=== PATIENT | male | born 1965 | race Caucasian/White ===

== ENCOUNTER 2024-12-11 07:13 | Inpatient (IN) ==
--- NOTE | 2024-12-11 07:41 | Emergency Department Note ---
ED Provider Note History of Present Illness Chief Complaint: Facial Injury/Pain Stated Complaint: JAW SWOLLEN AND INFECTED Time Seen by Provider: 12/11/24 07:23 Source: patient Mode of arrival: ambulatory Limitations: no limitations This patient is a 59-year-old male who presents to the emergency department for evaluation of an infection of his jaw. Patient states that he was seen here 2 days ago due to pain and swelling of the left jaw. At that time he had a scan and was sent home on clindamycin and oxycodone. He states that his swelling and pain have been worsening. He states the swelling is extending down into the left side of his neck. He states that yesterday, he began having trouble swallowing and today he feels he is having some slight trouble breathing. He currently denies fevers. Patient is diabetic and takes Eliquis due to history of DVT. Home Medications Medication Instructions Recorded Confirmed Type acetaminophen 500 mg tablet 500 mg PO Q6H PRN Pain 08/13/23 12/11/24 History cholecalciferol (vitamin D3) 25 25 mcg PO DAILY ##0 08/13/23 12/11/24 History mcg (1,000 unit) tablet (Vitamin D3) empagliflozin 25 mg tablet 25 mg PO QAM 08/13/23 12/11/24 History (Jardiance) famotidine 20 mg tablet 20 mg PO BID 08/13/23 12/11/24 History clindamycin HCl 300 mg capsule 300 mg PO TID 10 days #30 caps 12/09/24 12/11/24 Rx (Cleocin HCl) oxycodone 5 mg tablet 5 mg PO Q4H PRN pain #15 tabs 12/09/24 12/11/24 Rx apixaban 5 mg tablet (Eliquis) 5 mg PO BID 12/11/24 12/11/24 History atorvastatin 80 mg tablet 40 mg PO QAM 12/11/24 12/11/24 History folic acid 1 mg tablet 1 mg PO DAILY 12/11/24 12/11/24 History Allergies Allergy/AdvReac Type Severity Reaction Status Date / Time aspirin Allergy Anaphylaxis Verified 12/11/24 10:02 bee venom protein (honey bee) Allergy Anaphylaxis Verified 12/11/24 10:02 shellfish derived Allergy Hives Verified 12/11/24 10:02 Sulfa (Sulfonamide Allergy Hives Verified 12/11/24 10:02 Antibiotics) seafood Allergy Hives Uncoded 12/11/24 10:02 Past Med/Surg History Problem List (Updated 12/11/24 @ 16:38 by Meghan Rincon PA-C) Facial cellulitis (Acute) Carious teeth Anticoagulant long-term use Acute periodontal abscess (Acute) Dental infection (Acute) History of DVT (deep vein thrombosis) History of colon polyps Medical History History of cardiac murmur as a child Diabetes mellitus, type 2 Degenerative joint disease knees GERD (gastroesophageal reflux disease) Hyperlipidemia Surgical History Hx of colonoscopy Hx of sinus surgery Hx of tonsillectomy Social History Smoking Status: Former smoker Tobacco Type: Smokeless Tobacco (Dip or Chew) Second Hand Exposure: No; Do You Dip or Chew Tobacco: Yes; Hx Alcohol Use: Yes Alcohol type: beer Hx Substance Use: No Preferred Language: Croatian Communication Ability: Effective Neurology Technician Required: No Beliefs That Will Affect Care: None Current Living Situation: Family current occupational status: disabled Other Information That Helps Us Care for You: No Feels Safe at Home: Yes Safety Concerns: Feels Safe At This Time Assistive Devices: Glasses Physical Exam Vital Signs Vital Signs - 24 hr 12/11/24 07:18 12/11/24 08:56 Temperature 36.5 C Temperature Source Skin Pulse Rate 109 H Respiratory Rate 15 Respiratory Effort / Characteristics Non-Labored Spontaneous Respiratory Depth Normal Blood Pressure 165/86 H Blood Pressure Mean 112 Blood Pressure Position Sitting Pulse Oximetry 92 88 L Oxygen Delivery Method Room Air Room Air Sepsis Recent Fever Within 48 Hours No Sepsis New/Unexplained Change in Mental Status N/A Sepsis Action Taken by Nursing No Action Required Oxygen Flow Rate - Titration 2 Pulse Oximetry Post Tiitration 95 VITALS: Vitals are noted on the nurse's note and reviewed by myself. GENERAL: This is a 59-year-old male, in no acute distress, well-developed well- nourished. EARS: External auditory canals clear, tympanic membranes pearly funez without erythema or effusion bilaterally. EYES: Pupils equal round and reactive to light and accommodation. MOUTH: Very poor dentition. NECK: There is erythema, induration and tenderness to palpation along the left mandible extending down the neck and into the submental space. Mild trismus. HEART: Regular rate and rhythm without murmurs gallops or rubs. LUNGS: Clear to auscultation bilaterally without wheezes, rales or rhonchi. NEURO: Patient was alert and oriented to person place and time. Course Administered Medications Ampicillin Sodium/Sulbactam Sodium (Unasyn) 3,000 mg in 100 mls @ 200 mls/hr IV Q6H MARY Stop: 12/21/24 13:59 Last Infusion: 12/11/24 15:10 Dose: Infused Documented By: Admin: 12/11/24 14:39 Dose: 200 mls/hr Documented By: MARY Oxycodone/Acetaminophen (Oxycodone/Acetaminophen 5mg/325mg Tab) 2 tab PO Q4H PRN PRN Reason: Severe Pain (Scale 7, 8, 9,10) Stop: 12/25/24 12:12 Last Admin: 12/11/24 13:57 Dose: 2 tab Documented By: MARY Discontinued Medications Ampicillin Sodium/Sulbactam Sodium (Unasyn) 3,000 mg in 100 mls @ 200 mls/hr IV NOW STA Stop: 12/11/24 08:00 Last Infusion: 12/11/24 13:39 Dose: Infused Documented By: Admin: 12/11/24 08:04 Dose: 200 mls/hr Documented By: DANA Ioversol (Optiray 320 100ml) 94 ml IV ONCE ONE Stop: 12/11/24 08:03 Last Admin: 12/11/24 08:03 Dose: 94 ml Documented By: JERRY Morphine Sulfate (Morphine Sulfate 10 Mg/Ml Carp/Vial) 6 mg IV NOW STA Stop: 12/11/24 08:05 Last Admin: 12/11/24 08:19 Dose: 6 mg Documented By: DANA Ondansetron HCl (Ondansetron Inj 2 Mg/Ml 2 Ml Vial) 4 mg IV NOW STA Stop: 12/11/24 08:21 Last Admin: 12/11/24 08:23 Dose: 4 mg Documented By: DANA Oxycodone/Acetaminophen (Oxycodone/Acetaminophen 5mg/325mg Tab) 2 tab PO NOW STA Stop: 12/11/24 10:57 Last Admin: 12/11/24 11:01 Dose: 2 tab Documented By: JOSE Medical Decision Making Differential Diagnosis Differential diagnosis includes dental caries, periapical abscess, facial cellulitis, Khoi's angina, pharyngitis, referred pain, among others. Laboratory Data Attestation: I reviewed the patient's lab results. 12/11/24 07:47 12/11/24 08:39 Lab Results 12/11/24 12/11/24 Range/Units 07:47 08:39 WBC 10.72 (4.8-10.8) K/ul RBC 4.82 (4.70-6.10) M/uL Hgb 14.9 (14.0-18.0) g/dl Hct 43.9 (42.0-52.0) % MCV 91.1 (80.0-100.0) fL MCH 30.9 (25.0-34.0) pg MCHC 33.9 (32.0-36.0) g/dL RDW Std Deviation 44.1 (36.4-46.3) fL RDW Coeff of Kervin 13.2 (11.5-14.5) % Plt Count 279 (130-400) K/uL MPV 8.7 L (9.4-12.4) fL Immature Gran % (Auto) 0.4 % Neut % (Auto) 78.5 % Lymph % (Auto) 10.4 % Borden % (Auto) 9.6 % Eos % (Auto) 0.9 % Baso % (Auto) 0.2 % Neut # (Auto) 8.42 H (1.40-6.50) K/uL Lymph # (Auto) 1.11 L (1.20-3.40) K/uL Borden # (Auto) 1.03 H (0.11-0.59) K/uL Eos # (Auto) 0.10 (0.00-0.50) K/uL Baso # (Auto) 0.02 (0.00-0.20) K/uL Immature Gran # (Auto) 0.04 (0.01-0.20) K/uL Sodium 138 (136-145) mmol/L Potassium TNP 3.8 Chloride 107 (98-107) mmol/L Carbon Dioxide 22 (21-32) mmol/L Anion Gap 9 (3-11) BUN 9 (6-23) mg/dl Creatinine 0.83 (0.6-1.4) mg/dl Est Cr Clr Drug Dosing 123.0 ml/min eGFR 102.08 BUN/Creatinine Ratio 10.8 (10-20) Glucose 104 H (70-99(Fasting)) mg/dl Lactate 1.1 (0.4-2.0) mmol/L Calcium 8.3 L (8.6-10.3) mg/dl Total Bilirubin 0.8 (0.2-1.0) mg/dl AST TNP 19 ALT 32 (7-52) U/L Alkaline Phosphatase 70 (34-104) U/L Total Protein 7.9 (6.0-8.3) gm/dl Albumin 3.9 (3.4-5.0) gm/dl Globulin 4.0 (2.5-4.0) gm/dl Albumin/Globulin Ratio 1.0 (0.9-2) Imaging Data Attestation: I personally reviewed and interpreted this imaging study as follows: Radiologist's Impression: Soft Tissue Neck CT 12/11/24 07:31 CT soft tissue neck w con CLINICAL HISTORY: left sided facial/neck swelling, pain, cellulitis COMPARISON STUDY: 12/09/2024 FINDINGS: Multiple dental cavities and apical dental abscesses again seen most prominent at the upper and lower molars bilaterally. There is progressive soft tissue density medial to the left mandible angle and ramus. Within this soft tissue density there is an interval 2 cm hypodense finding consistent with soft tissue abscess. This causes mass effect on the tongue base and left tonsillar pillar. There is surrounding soft tissue stranding at the left facial subcutaneous tissues consistent with cellulitis. There is mild bilateral submandibular, submental, and left cervical adenopathy, likely reactive. There is moderate mucosal thickening at the maxillary sinuses. There is moderate diffuse cervical spine degenerative disc disease. IMPRESSION: Interval soft tissue abscess medial to the mandibular angle and ramus. This is likely odontogenic considering severe diffuse dental disease. Recommend follow-up CT scan of the neck with IV contrast in 3 months to make sure that the findings completely resolve without underlying mass or persistent adenopathy. ACT 112: Positive. There are findings on this exam that require communication between the performing entity and the patient following Patient Test Result Information Act ([place] Act 112) guidelines. Electronically signed by: Jame Pace M.D. 12/11/2024 8:22 AM MDM Narrative This patient is a 59-year-old male who presents to the emergency department for evaluation of worsening facial swelling. Patient seen here 2 days ago and diagnosed with facial cellulitis, started on clindamycin. He is having worsening symptoms with trouble swallowing/breathing associated with this. On exam he has induration to the left mandible extending down into the jaw and onto the chin. Labs showed no leukocytosis or concerning electrolyte abnormalities. CT performed and does show facial cellulitis with interval development of an abscess and mass effect on the tongue base and left tonsillar pillar. Patient treated with IV Unasyn. He was given morphine and Zofran for pain, did have some slight oxygen desaturations and was placed on oxygen via nasal cannula. [place] [facility] [place] the patient in the [place]. He recommended admission for IV antibiotics. [facility] to evaluate the patient for further care. Impression Acute periodontal abscess, Facial cellulitis Discharge Plan Visit Data Chief Complaint: Facial Injury/Pain Stated Complaint: JAW SWOLLEN AND INFECTED ED Provider: Fanny [facility] ED Midlevel Provider: Meghan Rincon Discharge Problem: Acute periodontal abscess, Facial cellulitis Patient Disposition: Admitted As Inpatient Discharge Instructions Interventions: ED Discharge Assessment Last Done: 12/11/24 13:22
[2024-12-11] MEDS: OPTIRAY 320 100ml IV ONE (08:03)
[2024-12-11] MEDS: AMPICILLIN/SULBACTAM SOD 3,000 MG/100 ML BAG IV STA (08:04)
[2024-12-11 08:15] LABS: Basophils # (auto) 0.02 K/uL (0.00-0.20); Basophils % (auto) 0.2 %; Eosinophils % (auto) 0.9 %; Hematocrit (blood only) 43.9 % (42.0-52.0); Hemoglobin 14.9 g/dl (14.0-18.0); Immature Granulocytes # (auto) 0.04 K/uL (0.01-0.20); Immature Granulocytes % (auto) 0.4 %; Lymphocytes # (auto) 1.11 K/uL (1.20-3.40); Lymphocytes % (auto) 10.4 %; Mean Corpuscular Hemoglobin 30.9 pg (25.0-34.0); Mean Corpuscular Hgb Conc 33.9 g/dL (32.0-36.0); Mean Corpuscular Volume 91.1 fL (80.0-100.0); Mean Platelet Volume 8.7 fL (9.4-12.4); Monocytes # (auto) 1.03 K/uL (0.11-0.59); Monocytes % (auto) 9.6 %; Neutrophils # (auto) 8.42 K/uL (1.40-6.50); Neutrophils % (auto) 78.5 %; Platelet Count 279 K/uL (130-400); RDW Coefficient of Variation 13.2 % (11.5-14.5); RDW Standard Deviation 44.1 fL (36.4-46.3); Red Blood Count 4.82 M/uL (4.70-6.10); White Blood Count 10.72 K/ul (4.8-10.8)
[2024-12-11] MEDS: MoRPHine SULFATE 10 MG/ML CARP/VIAL IV STA (08:19)
[2024-12-11] MEDS: ONDANSETRON INJ 2 MG/ML 2 ML VIAL IV STA (08:23)
--- NOTE | 2024-12-11 08:24 | CT Scan Report ---
CT soft tissue neck w con CLINICAL HISTORY: left sided facial/neck swelling, pain, cellulitis COMPARISON STUDY: 12/09/2024 FINDINGS: Multiple dental cavities and apical dental abscesses again seen most prominent at the upper and lower molars bilaterally. There is progressive soft tissue density medial to the left mandible a ngle and ramus. Within this soft tissue density there is an interval 2 cm hypodense finding consisten t with soft tissue abscess. This causes mass effect on the tongue base and left tonsillar pillar. The re is surrounding soft tissue stranding at the left facial subcutaneous tissues consistent with cellu litis. There is mild bilateral submandibular, submental, and left cervical adenopathy, likely reactiv e. There is moderate mucosal thickening at the maxillary sinuses. There is moderate diffuse cervical spine degenerative disc disease. IMPRESSION: Interval soft tissue abscess medial to the mandibular angle and ramus. This is likely od ontogenic considering severe diffuse dental disease. Recommend follow-up CT scan of the neck with IV contrast in 3 months to make sure that the findings completely resolve without underlying mass or per sistent adenopathy. ACT 112: Positive. There are findings on this exam that require communication between the performing entity and the patient following Patient Test Result Information Act ([place] Act 112) guidelines. Electronically signed by: Jame Pace M.D. 12/11/2024 8:22 AM
[2024-12-11 08:32] LABS: Alanine Aminotransferase 32 U/L (7-52); Albumin Level 3.9 gm/dl (3.4-5.0); Alkaline Phosphatase 70 U/L (34-104); Anion Gap 9 (3-11); BUN Creatinine Ratio 10.8 (10-20); Bilirubin,Total 0.8 mg/dl (0.2-1.0); Blood Urea Nitrogen 9 mg/dl (6-23); Calcium 8.3 mg/dl (8.6-10.3); Carbon Dioxide 22 mmol/L (21-32); Chloride 107 mmol/L (98-107); Glucose 104 mg/dl (70-99(Fasting)); Sodium 138 mmol/L (136-145); Total Protein 7.9 gm/dl (6.0-8.3)
[2024-12-11 09:17] LABS: Potassium 3.8 mmol/L (3.5-5.1)
--- NOTE | 2024-12-11 10:47 | History & Physical Report ---
Date of Service December 11, 2024 Assessment & Plan (1) Facial cellulitis: Plan: Acute, severe with abscess - Admit to med/surg - VS per unit protocol - Continue empiric Unasyn but increase to 3g IV q6 given severity of infection - Blood cultures obtained and pending - Consult formally placed to OMFS, Dr. Bullock, appreciate assistance - Hold Eliquis in order to proceed with planned OR I&D on Wednesday 12/13, will make NPO after MN on 12/12 - Pain control with Percocet 1-2tabs according to pain scale, Ketorolac, and Morphine for breakthrough pain - APAP PRN fever or mild pain - Diabetic diet, soft and easy to chew texture - AM labs ordered (2) Dental infection: Plan: Acute, severe with multiple dental caries and abscesses - IV Unasyn as noted above, pain control - Dr. Bullock on consult, will need multiple teeth extracted to control infection - Oral mouth rinse as per Dr. Bullock (3) Diabetes mellitus, type 2: Plan: Chronic - Uncertain level of control, no hemoglobin a1c on record, [facility] - Reports his BSG runs in the 100-200s - Continue Jardiance, check BSG ac and hs - Add SSI if BSG >160 (4) History of DVT (deep vein thrombosis): Plan: History of DVT unprovoked 3 months ago - Hold Eliquis for planned procedure, explained risk which can include repeat DVT/PE, pt verbalized understanding - Encourage ambulation in room to avoid prolonged sitting/lying which will further increase risk - [facility] and potentially hypercoagulable work up Plan HLD - continue atorvastatin GERD - continue famotidine DVT ppx will be with Lovenox, which dose can be held on Friday evening (day prior to procedure), discussed with Dr. Bullock who was in agreement. AM lab ordered. Above plan of care has been d/w Dr. Granado who will also see and evaluate this patient. Further orders will be implemented as clinically warranted by attending. Admission and Anticipated Discharge Date Admission Date: December 11, 2024 History of Present Illness Chief Complaint: Facial swelling and pain Primary Care Provider: [facility] Moreno is a 59 yo M with a pmhx of DMT2, HLD and h/o unprovoked DVT 3 months ago who presents to the ER today c/o left sided facial swelling and pain. He reports symptoms started about 1 week ago with an achy tooth. He was using OTC remedies without relief. Symptoms worsened and he presented to the ER on where he was diagnosed with a dental infection and discharged home with a course of clindamycin. Pt reports that since discharge, he has had progressively worsening swelling and pain. He is able to swallow and denies any airway impairment or dyspnea. Denies fever or chills. He underwent CT soft tissue neck in the ER with findings of multiple dental cavities and abscesses, but a notable 2cm abscess medial to the left mandible angle and ramus. He was medicated with a dose of IV Unasyn and Morphine for pain. OMFS consult placed, he was seen in the ER by Dr. Bullock who plans to perform I&D but will require admission, IV abx, and holding his Eliquis until he can proceed to the OR. He has subsequently been referred to the hospital medicine team for further care. Allergies Allergy/AdvReac Type Severity Reaction Status Date / Time aspirin Allergy Anaphylaxis Verified 12/11/24 10:02 bee venom protein (honey bee) Allergy Anaphylaxis Verified 12/11/24 10:02 shellfish derived Allergy Hives Verified 12/11/24 10:02 Sulfa (Sulfonamide Allergy Hives Verified 12/11/24 10:02 Antibiotics) seafood Allergy Hives Uncoded 12/11/24 10:02 Home Medications Medication Instructions Recorded Confirmed Type acetaminophen 500 mg tablet 500 mg PO Q6H PRN Pain 08/13/23 12/11/24 History cholecalciferol (vitamin D3) 25 25 mcg PO DAILY ##0 08/13/23 12/11/24 History mcg (1,000 unit) tablet (Vitamin D3) empagliflozin 25 mg tablet 25 mg PO QAM 08/13/23 12/11/24 History (Jardiance) famotidine 20 mg tablet 20 mg PO BID 08/13/23 12/11/24 History clindamycin HCl 300 mg capsule 300 mg PO TID 10 days #30 caps 12/09/24 12/11/24 Rx (Cleocin HCl) oxycodone 5 mg tablet 5 mg PO Q4H PRN pain #15 tabs 12/09/24 12/11/24 Rx apixaban 5 mg tablet (Eliquis) 5 mg PO BID 12/11/24 12/11/24 History atorvastatin 80 mg tablet 40 mg PO QAM 12/11/24 12/11/24 History folic acid 1 mg tablet 1 mg PO DAILY 12/11/24 12/11/24 History Past Med/Surg History Problem List Facial cellulitis (Acute) Carious teeth Anticoagulant long-term use Acute periodontal abscess (Acute) Dental infection (Acute) History of DVT (deep vein thrombosis) History of colon polyps Medical History History of cardiac murmur as a child Diabetes mellitus, type 2 Degenerative joint disease knees GERD (gastroesophageal reflux disease) Hyperlipidemia Surgical History Hx of colonoscopy Hx of sinus surgery Hx of tonsillectomy Social History Smoking Status: Former smoker Tobacco Type: Smokeless Tobacco (Dip or Chew) Second Hand Exposure: No; Do You Dip or Chew Tobacco: Yes; Hx Alcohol Use: Yes Alcohol type: beer Hx Substance Use: No Preferred Language: Estonian Communication Ability: Effective Dag Sprayer Required: No Beliefs That Will Affect Care: None Current Living Situation: Family current occupational status: disabled Other Information That Helps Us Care for You: No Feels Safe at Home: Yes Safety Concerns: Feels Safe At This Time Assistive Devices: Glasses Review of Systems 2 Review of Systems: All systems reviewed and are unremarkable except as noted in HPI and below. Denies fever, chills, fatigue, headache, nasal congestion, sore throat, cough, chest pain, shortness of breath, palpitations, orthopnea, PND, abdominal pain, n/v/d, constipation, dysuria, hematuria, frequency, back pain, joint pain or swelling, easy bruising or bleeding, skin lesions or rashes. Physical Exam 2 Physical Exam: GENERAL: 59 yo morbidly obese WM. Awake, alert, no distress. ENT: Marked left sided facial swelling at angle of mandible and TTP. +lymphadenopathy. Dentition poor. Copious purulent drainage visualized in area where left lower molars should be. LUNGS: Clear to auscultation bilaterally. No w/r/r CARDIOVASCULAR: Mildly tachycardic SKIN: Warm, dry, intact. No rashes or lesions. Results & Data Results & Data Vital Signs (Past 12 Hours) Vital Signs Temp Pulse Resp BP Pulse Ox O2 Del Method 12/11/24 08:56 88 L Room Air 12/11/24 07:18 36.5 C 109 H 15 165/86 H 92 Room Air Laboratory Results 12/11/24 07:47 12/11/24 08:39 Diagnostic Findings Soft Tissue Neck CT 12/11/24 07:31 CT soft tissue neck w con CLINICAL HISTORY: left sided facial/neck swelling, pain, cellulitis COMPARISON STUDY: 12/09/2024 FINDINGS: Multiple dental cavities and apical dental abscesses again seen most prominent at the upper and lower molars bilaterally. There is progressive soft tissue density medial to the left mandible angle and ramus. Within this soft tissue density there is an interval 2 cm hypodense finding consistent with soft tissue abscess. This causes mass effect on the tongue base and left tonsillar pillar. There is surrounding soft tissue stranding at the left facial subcutaneous tissues consistent with cellulitis. There is mild bilateral submandibular, submental, and left cervical adenopathy, likely reactive. There is moderate mucosal thickening at the maxillary sinuses. There is moderate diffuse cervical spine degenerative disc disease. IMPRESSION: Interval soft tissue abscess medial to the mandibular angle and ramus. This is likely odontogenic considering severe diffuse dental disease. Recommend follow-up CT scan of the neck with IV contrast in 3 months to make sure that the findings completely resolve without underlying mass or persistent adenopathy. ACT 112: Positive. There are findings on this exam that require communication between the performing entity and the patient following Patient Test Result Information Act ([place] Act 112) guidelines. Electronically signed by: Jame Pace M.D. 12/11/2024 8:22 AM Code Status & VTE Plan Code Status full code VTE Prophylaxis Plan VTE Prophylaxis will be ordered: Yes Supervising Physician Co-Signing Physician Notes During face to face encounter, I obtained a history and physical examination, discussed plan of care with patient and answered his questions. I discussed plan of care with SHANICE Ferguson. I reviewed above note and agree with it except for the following: Patient is admitted with facial cellulitis. Patient will need intervention by oral max. surgeon. This will be done on friday. continue antibiotics. PG Care Time/CCT Total # of Minutes Spent Total Time Spent with Patient: Total time spent is greater than 50% in coordination of care (as documented) at patient's floor/unit and/or counseling patient: 77 minutes Coding Level of Care Code 52087 INT INP/OBS CARE MIN Diagnoses Facial cellulitis L03.211 Dental infection K04.7 Diabetes mellitus, type 2 E11.9 History of DVT (deep vein thrombosis) Z86.718
[2024-12-11] MEDS: oxyCODONE/ACETAMINOPHEN 5mg/325mg TAB PO STA (11:01)
[2024-12-11] MEDS ORDERED: ALUMINUM/MAGNESIUM SUSP 30 ML UDC PO PRN (12:13)
[2024-12-11] MEDS ORDERED: DEXTROSE 50% 50 ML SYRINGE IV PRN (12:13)
[2024-12-11] MEDS ORDERED: GLUCAGON FOR INJ 1 MG VIAL SQ PRN (12:13)
[2024-12-11] MEDS ORDERED: GLUCOSE 10 TAB/TUBE PO PRN (12:13)
[2024-12-11] MEDS ORDERED: ONDANSETRON INJ 2 MG/ML 2 ML VIAL IV PRN (12:13)
[2024-12-11] MEDS ORDERED: GLUCOSE 40% GEL 15 GM TUBE PO PRN (12:13)
[2024-12-11] MEDS ORDERED: POLYETHYLENE (MIRALAX) 17 GM PACK PO PRN (12:13)
[2024-12-11] MEDS ORDERED: MAGNESIUM HYDROXIDE SUSP 30 ML UDC PO PRN (12:13)
[2024-12-11] MEDS ORDERED: MELATONIN 3 MG TAB PO PRN (12:13)
[2024-12-11] MEDS ORDERED: CARBOHYDRATES FOR HYPOGLYCEMIA PO PRN (12:13)
[2024-12-11] MEDS: oxyCODONE/ACETAMINOPHEN 5mg/325mg TAB PO PRN ×2 (13:57→20:20)
[2024-12-11] MEDS: AMPICILLIN/SULBACTAM SOD 3,000 MG/100 ML BAG IV SCH (14:39)
--- NOTE | 2024-12-11 14:57 | Oral/Maxillofacial Consult ---
Date of Consultation December 11, 2024 Assessment & Plan (1) Facial cellulitis: (2) Dental infection: (3) Anticoagulant long-term use: (4) Carious teeth: (5) Acute periodontal abscess: History of Present Illness Attending Physician: Chester Granado History of Present Illness Oral Maxillofacial Surgery Exam On Eliquis will need to hold 48 hours--Friday Plan surgery, then once medically stable he can bet d/c to home. Surgical plan -I&D left submandibular, floor of mouth and masseter space infection. Extraction of teeth lower left side and any other infected teeth left side. He will need all teeth removed in the future. Present Complaint: I have pain/swelling/drainage from my infected teeth. Symptoms have been ongoing for a while. Was on oral antibiotics but got worse, increased pain, swelling and drainage Returned to ER --plan is for admission I&D with extractions soon. Moreno is a 59 yo M with a h/o of DMT2, HLD and h/o unprovoked DVT 3 months ago who presents to the ER today c/o left sided facial swelling and pain. He reports symptoms started about 1 week ago with an achy tooth. He was using OTC remedies without relief. Symptoms worsened and he presented to the ER on where he was diagnosed with a dental infection and discharged home with a course of clindamycin. Pt reports that since discharge, he has had progressively worsening swelling and pain. He is able to swallow and denies any airway impairment or dyspnea. Denies fever or chills. He underwent CT soft tissue neck in the ER with findings of multiple dental cavities and abscesses, but a notable 2cm abscess medial to the left mandible angle and ramus. He was medicated with a dose of IV Unasyn and Morphine for pain. OMFS consult placed, he was seen in the ER by Dr. Bullock who plans to perform I&D but will require admission, IV abx, and holding his Eliquis until he can proceed to the OR. He has subsequently been referred to the hospital medicine team for further care. Oral Exam: Finding--Significant swelling and infection associated with the infected teeth, tender gingival tissue with deep pocket formation. Grossly carious teeth removal is clinical indicated. I plan to drain the abscess and remove teeth on the lower and possible upper left to prevent upgoing infections. I reviewed the CT and it is unbelievable that every tooth in his mouth is decayed and not restorable! Eventually he will need full mouth extractions, bone adjustments and full dentures. [facility] about getting him [facility] for such an extensive amount of oral surgery. Imaging: The CT was reviewed, there were no abnormal findings other then malposed wisdom teeth and infected teeth The TMJ are well positioned and no evidence of bony pathology. The sinus, supporting bone all WNL Evaluated the nerve/sinus relationship to the roots of the teeth. All teeth are in need for future removal CT soft tissue neck w con December 11 CLINICAL HISTORY: left sided facial/neck swelling, pain, cellulitis COMPARISON STUDY: 12/09/2024 FINDINGS: Multiple dental cavities and apical dental abscesses again seen most prominent at the upper and lower molars bilaterally. There is progressive soft tissue density medial to the left mandible angle and ramus. Within this soft tissue density there is an interval 2 cm hypodense finding consistent with soft tissue abscess. This causes mass effect on the tongue base and left tonsillar pillar. There is surrounding soft tissue stranding at the left facial subcutaneous tissues consistent with cellulitis. There is mild bilateral submandibular, submental, and left cervical adenopathy, likely reactive. There is moderate mucosal thickening at the maxillary sinuses. There is moderate diffuse cervical spine degenerative disc disease. IMPRESSION: Interval soft tissue abscess medial to the mandibular angle and ramus. This is likely odontogenic considering severe diffuse dental disease. Recommend follow-up CT scan of the neck with IV contrast in 3 months to make sure that the findings completely resolve without underlying mass or persistent adenopathy. CT from December 09 CLINICAL HISTORY: Left mandibular dental infx/abscess. FINDINGS: Visualized portions of the brain parenchyma are unremarkable on unenhanced exam. There is extensive odontogenic disease with numerous dental caries and periapical lucencies/abscesses. There is moderate left inferior facial and upper neck inflammation with stranding and thickening of the left platysma. Associated skin thickening is present. No fluid collection is identified on unenhanced exam. Inflammation is predominantly along the body of the left hemimandible extending into the left submandibular space. There is mild mass effect upon the hypopharynx. There is no soft tissue gas. Epiglottis is normal. There is a small air-fluid level with secretions within the right maxillary sinus. There are postoperative findings within the sinuses. Otherwise, there is mild mucosal thickening within the sinuses. Maxillary sinus mucosal thickening may be related to a joint degenerative disease. Visualized portions of the lung apices are unremarkable. Multiple mildly enlarged cervical lymph nodes are noted. Index left level 1 node on image 203 measures 1.7 x 0.9 cm. IMPRESSION: 1. Left facial and upper neck inflammation consistent with cellulitis which is odontogenic in etiology. No fluid collection identified on unenhanced exam to suggest abscess. No soft tissue gas. Mild mass effect upon the hypopharynx. 2. Extensive odontogenic disease with numerous dental caries and periapical lucencies/abscesses. 3. Mildly enlarged cervical lymph nodes, left larger than right. These are likely reactive. 4. Small air-fluid level within the right maxillary sinus and mild mucosal thickening within the sinuses, as described above. Soft tissue: The left floor of the mouth is very swollen,there is subperiosteal swelling upper left molars with draining fistula present. I will need to extract with the I&D at least 18,19,20,21 and possible 12,13,14,15. Due to the limited opening I will need to finalize the treatment plan regarding the extraction to the day of the surgery December 13 at 1 pm Otherwise the tongue, hard/soft palate, posterior pharyngeal area all with in normal limits, no pathology or abnormal findings noted. Very poor oral care All teeth are grossly carious and require removal No lesions noted that require follow up or Bx. Oral Care: Overall oral care is very poor, severe dental decay and infected teeth Abnormal bone , exostosis and bobby present Occlusion: severe attrition, TMJ exam: Not able to opening due to current infections in the left submandibular and masseter space abscess. Periodontal exam: Grossly inflamed gingival tissue with evidence of significant periodontal pathology. Head/Neck exam: Neck is supple, FROM, Able to extend and flex neck w/o difficulty, no masses, no abnormalities, no airway issues, evidence of sleep apnea. Treatment Plan: Admission with hydration, admit to medicine, OR Friday at 1 pm Set up with general anesthesia in hospital due to complexity of the procedure My plans are to see Moreno Friday morning after I complete my case in the Surgical center to have him sign the consents and review his surgery of 1 pm in the OR Friday. He will be NPO and his Lovenox will be held Friday evening. I plan to drain the abscess and remove teeth on the lower and possible upper left to prevent upgoing infections. I reviewed the CT and it is unbelievable that every tooth in his mouth is decayed and not restorable! Eventually he will need full mouth extractions, bone adjustments and full dentures. Hopefully, I can work with the [facility] t o see about getting him approved for such an extensive amount of oral surgery. I reviewed the treatment plan and consent with the patient. Understanding was expressed. Time was given for questions regarding the surgery, risks and post op care. Discussed alternative to treatment--procedure as planned, Do not do surgery Left submandibular and Masseter space I&D Extraction of teeth Lower # 18,19,20,21 and Upper #12,13,14,15 and any other teeth that are infected with fistula Risks discussed: Bleeding,Pain,swelling,infection, dry socket, delayed healing, nerve injury to face,lips,tongue,chin area which could be permanent (rare). Need for more dental extraction (full mouth), Denture, TMJ, jaw stiffness, change in bite (rare), ear pain (referred). Sinus problems like fistula or infection. Need to leave a small root fragment in place to avoid injury to nerve or sinus. Relationship of wisdom teeth to nerve/sinus and risk of jaw fracture. Home care reviewed: tooth brushing, rinsing, follow up care with Dr Bullock. diet=[id number] dental. Discussed activity level, driving/work while on Rx pain Meds. Find a dentist for on going future care Surgery to be set up once medically cleared and hold Eliquis for 48 hours--Friday afternoon Allergies Allergy/AdvReac Type Severity Reaction Status Date / Time aspirin Allergy Anaphylaxis Verified 12/11/24 10:02 bee venom protein (honey bee) Allergy Anaphylaxis Verified 12/11/24 10:02 shellfish derived Allergy Hives Verified 12/11/24 10:02 Sulfa (Sulfonamide Allergy Hives Verified 12/11/24 10:02 Antibiotics) seafood Allergy Hives Uncoded 12/11/24 10:02 Home Medications Medication Instructions Recorded Confirmed Type acetaminophen 500 mg tablet 500 mg PO Q6H PRN Pain 08/13/23 12/11/24 History cholecalciferol (vitamin D3) 25 25 mcg PO DAILY ##0 08/13/23 12/11/24 History mcg (1,000 unit) tablet (Vitamin D3) empagliflozin 25 mg tablet 25 mg PO QAM 08/13/23 12/11/24 History (Jardiance) famotidine 20 mg tablet 20 mg PO BID 08/13/23 12/11/24 History clindamycin HCl 300 mg capsule 300 mg PO TID 10 days #30 caps 12/09/24 12/11/24 Rx (Cleocin HCl) oxycodone 5 mg tablet 5 mg PO Q4H PRN pain #15 tabs 12/09/24 12/11/24 Rx apixaban 5 mg tablet (Eliquis) 5 mg PO BID 12/11/24 12/11/24 History atorvastatin 80 mg tablet 40 mg PO QAM 12/11/24 12/11/24 History folic acid 1 mg tablet 1 mg PO DAILY 12/11/24 12/11/24 History Patient History Medical History History of cardiac murmur as a child Diabetes mellitus, type 2 Degenerative joint disease knees GERD (gastroesophageal reflux disease) Hyperlipidemia Surgical History Hx of colonoscopy Hx of sinus surgery Hx of tonsillectomy Social History Smoking Status: Former smoker Tobacco Type: Smokeless Tobacco (Dip or Chew) Second Hand Exposure: No; Do You Dip or Chew Tobacco: Yes; Hx Alcohol Use: Yes Alcohol type: beer Hx Substance Use: No Preferred Language: [place] Communication Ability: Effective [employer] Executive Required: No Beliefs That Will Affect Care: None Current Living Situation: Family current occupational status: disabled Other Information That Helps Us Care for You: No Feels Safe at Home: Yes Safety Concerns: Feels Safe At This Time Assistive Devices: Glasses Results & Data Vital Signs (Past 12 Hours) Vital Signs Temp Pulse Pulse Resp BP BP Pulse Ox 12/11/24 14:00 12/11/24 13:40 37.0 C 111 H 18 146/72 H 93 12/11/24 13:00 101 H 20 142/72 H 98 12/11/24 10:47 108 H 20 139/98 96 12/11/24 08:56 88 L 12/11/24 07:18 36.5 C 109 H 15 165/86 H 92 O2 Del Method O2 Flow Rate 12/11/24 14:00 Room Air 12/11/24 13:40 Room Air 12/11/24 13:00 Nasal Cannula 2 12/11/24 10:47 12/11/24 08:56 Room Air 12/11/24 07:18 Room Air PG Care Time/CCT Total # of Minutes Spent Total Time Spent with Patient: Total time spent is greater than 50% in coordination of care (as documented) at patient's floor/unit and/or counseling patient: Coding Level of Care Code 71848 IN/OBS CONSULT LVL 3,45M Diagnoses Facial cellulitis L03.211 Dental infection K04.7 Anticoagulant long-term use Z79.01 Carious teeth K02.9 Acute periodontal abscess K05.219
[2024-12-11] MEDS: ENOXAPARIN INJ 40 MG/0.4 ML SYR SQ SCH (20:30)
[2024-12-11] MEDS: FAMOTIDINE 20 MG TAB PO SCH (20:30)
[2024-12-11] MEDS: KETOROLAC TROMETHAMINE 15 MG/ML VIAL IV PRN (23:09)
[2024-12-12 06:25] LABS: Basophils # (auto) 0.03 K/uL (0.00-0.20); Basophils % (auto) 0.4 %; Eosinophils # (auto) 0.26 K/uL (0.00-0.50); Eosinophils % (auto) 3.2 %; Hematocrit (blood only) 39.9 % (42.0-52.0); Hemoglobin 13.4 g/dl (14.0-18.0); Immature Granulocytes # (auto) 0.03 K/uL (0.01-0.20); Immature Granulocytes % (auto) 0.4 %; Lymphocytes # (auto) 1.86 K/uL (1.20-3.40); Lymphocytes % (auto) 22.8 %; Mean Corpuscular Hemoglobin 30.6 pg (25.0-34.0); Mean Corpuscular Hgb Conc 33.6 g/dL (32.0-36.0); Mean Corpuscular Volume 91.1 fL (80.0-100.0); Mean Platelet Volume 8.6 fL (9.4-12.4); Monocytes # (auto) 0.71 K/uL (0.11-0.59); Monocytes % (auto) 8.7 %; Neutrophils # (auto) 5.28 K/uL (1.40-6.50); Neutrophils % (auto) 64.5 %; Platelet Count 245 K/uL (130-400); RDW Coefficient of Variation 13.2 % (11.5-14.5); RDW Standard Deviation 44.5 fL (36.4-46.3); Red Blood Count 4.38 M/uL (4.70-6.10); White Blood Count 8.17 K/ul (4.8-10.8)
--- NOTE | 2024-12-12 06:44 | Hospitalist Progress Note ---
Date of Service December 12, 2024 Assessment & Plan (1) Facial cellulitis: Plan: Acute, severe with abscess - Admit to med/surg - VS per unit protocol - Continue empiric Unasyn but increase to 3g IV q6 given severity of infection - Blood cultures obtained and pending - Consult formally placed to OMFS, Dr. Bullock, appreciate assistance - Hold Eliquis in order to proceed with planned OR I&D on Wednesday 12/13, will make NPO after MN on 12/12 - Pain control with Percocet 1-2tabs according to pain scale, Ketorolac, and Morphine for breakthrough pain - APAP PRN fever or mild pain - Diabetic diet, soft and easy to chew texture - AM labs ordered (2) Dental infection: Plan: Acute, severe with multiple dental caries and abscesses - IV Unasyn as noted above, pain control - Dr. Bullock on consult, will need multiple teeth extracted to control infection - Oral mouth rinse as per Dr. Bullock (3) Anticoagulant long-term use: (4) Carious teeth: (5) Acute periodontal abscess: (6) Diabetes mellitus, type 2: Plan: Chronic - Uncertain level of control, no hemoglobin a1c on record, [facility] - Reports his BSG runs in the 100-200s - Continue Jardiance, check BSG ac and hs - Add SSI if BSG >160 (7) History of DVT (deep vein thrombosis): Plan: History of DVT unprovoked 3 months ago - Hold Eliquis for planned procedure, explained risk which can include repeat DVT/PE, pt verbalized understanding - Encourage ambulation in room to avoid prolonged sitting/lying which will further increase risk - Will require [facility] with [facility] and potentially hypercoagulable work up Plan 59 year old male presenting with dental abscess/facial cellulitis with plan for OR 3 after 48 hours off Eliquis. #Dental Infection/Facial Cellulitis - Acute, severe with abscess - Blood cultures obtained and pending - Consult formally placed to OMFS, Dr. Bullock, appreciate assistance-> plan for OR 12/13 after 48 hours off Eliquis - NPO after MN on 12/12 - Pain control with Percocet 1-2tabs according to pain scale, Ketorolac, and Morphine for breakthrough pain - APAP PRN fever or mild pain - Diabetic diet, soft and easy to chew texture - Continue Unasyn -will continue above plan #DM2 - Uncertain level of control, no hemoglobin a1c on record, [facility]-> hemoglobin a1c qAM - Reports his BSG runs in the 100-200s - Continue Jardiance, check BSG ac and hs - Add SSI if BSG >160 #History of DVT - unprovoked 3 months ago - Hold Eliquis for planned procedure - Encourage ambulation in room to avoid prolonged sitting/lying which will further increase risk - Will require [facility] with [facility] and potentially hypercoagulable work up - Lovenox: holding loveox now. Chronic/Stable: HLD - continue atorvastatin GERD - continue famotidine DVT ppx will be with Lovenox, which dose can be held on Friday evening (day prior to procedure), discussed with Dr. Bullock who was in agreement. Diet: NPO at midnight Admission and Anticipated Discharge Date Admission Date: December 11, 2024 Subjective Pt seen at bedside this morning. Denies fever/chills. Pain is well controlled. Able to get some breakfast. Review of Systems Review of Systems: As per above Physical Exam Physical Exam: Constitutional: well-appearing, no acute distress HEENT: NCAT, no conjunctival injection CV: regular rhythm, no murmur appreciated, extremities well-perfused Resp: CTABL, no wheezes/rales/rhonchi appreciated, no increased work of breathing MSK: no gross deformities appreciated Skin: warm, dry, no rash appreciated Neuro: alert, oriented, no focal neurologic deficit appreciated Results & Data Results & Data Vital Signs (Past 12 Hours) Vital Signs Temp Pulse Resp BP Pulse Ox O2 Del Method 12/11/24 19:40 36.6 C 112 H 18 161/102 H 94 Room Air Resident Activity Tracking Resident Involvement: Resident Care Provided Care Provided: Adult Hospital Medicine
[2024-12-12 06:55] LABS: BUN Creatinine Ratio 11.7 (10-20); Calcium 8.4 mg/dl (8.6-10.3); Creatinine Clr Calc Pharmacy 132.6 ml/min; Magnesium 1.8 mg/dl (1.7-2.4); Potassium 3.6 mmol/L (3.5-5.1)
[2024-12-12] MEDS: FOLIC ACID 1 MG TAB PO SCH (07:47)
[2024-12-12] MEDS: ATORVASTATIN 40 MG TAB PO SCH (07:48)
[2024-12-12] MEDS ORDERED: EMPAGLIFLOZIN 25 MG TAB PO SCH (09:00)
[2024-12-12] MEDS: MoRPHine SULFATE 4 MG/ML 1 ML CARP\\VIAL IV PRN (11:55)
[2024-12-13 07:20] LABS: Basophils # (auto) 0.01 K/uL (0.00-0.20); Basophils % (auto) 0.2 %; Eosinophils % (auto) 1.7 %; Hematocrit (blood only) 41.5 % (42.0-52.0); Hemoglobin 13.9 g/dl (14.0-18.0); Immature Granulocytes # (auto) 0.02 K/uL (0.01-0.20); Immature Granulocytes % (auto) 0.3 %; Lymphocytes # (auto) 1.16 K/uL (1.20-3.40); Lymphocytes % (auto) 19.3 %; Mean Corpuscular Hemoglobin 30.5 pg (25.0-34.0); Mean Corpuscular Hgb Conc 33.5 g/dL (32.0-36.0); Mean Corpuscular Volume 91.2 fL (80.0-100.0); Mean Platelet Volume 8.5 fL (9.4-12.4); Monocytes # (auto) 0.39 K/uL (0.11-0.59); Monocytes % (auto) 6.5 %; Neutrophils # (auto) 4.34 K/uL (1.40-6.50); Platelet Count 291 K/uL (130-400); RDW Coefficient of Variation 12.9 % (11.5-14.5); RDW Standard Deviation 42.8 fL (36.4-46.3); Red Blood Count 4.55 M/uL (4.70-6.10); White Blood Count 6.02 K/ul (4.8-10.8)
--- NOTE | 2024-12-13 07:56 | Anesthesiology Consultation ---
Date of Service December 13, 2024 Assessment & Plan Chart Review Chart Review: Acceptable Risk for Surgery and Patient NOT seen in Pre Admission Testing History Surgery Operation Date: 12/13/24 08:20 Proposed Procedures p Left Side Incision and Drainage, - Elroy Bullock DMD s Left Lower Multiple Extractions - Elroy Bullock DMD Height/Weight Height: 5 ft 8 in Weight: 118.8 kg Allergies Allergy/AdvReac Type Severity Reaction Status Date / Time aspirin Allergy Anaphylaxis Verified 12/11/24 10:02 bee venom protein (honey bee) Allergy Anaphylaxis Verified 12/11/24 10:02 shellfish derived Allergy Hives Verified 12/11/24 10:02 Sulfa (Sulfonamide Allergy Hives Verified 12/11/24 10:02 Antibiotics) seafood Allergy Hives Uncoded 12/11/24 10:02 Medications Home Medications Medication Instructions Recorded Confirmed Last Taken acetaminophen 500 mg tablet 500 mg PO Q6H PRN Pain 08/13/23 12/11/24 08/18/23 cholecalciferol (vitamin D3) 25 25 mcg PO DAILY ##0 08/13/23 12/11/24 12/11/24 mcg (1,000 unit) tablet (Vitamin D3) empagliflozin 25 mg tablet 25 mg PO QAM 08/13/23 12/11/24 12/11/24 (Jardiance) famotidine 20 mg tablet 20 mg PO BID 08/13/23 12/11/24 12/11/24 clindamycin HCl 300 mg capsule 300 mg PO TID 10 days #30 caps 12/09/24 12/11/24 12/11/24 (Cleocin HCl) oxycodone 5 mg tablet 5 mg PO Q4H PRN pain #15 tabs 12/09/24 12/11/24 Unknown apixaban 5 mg tablet (Eliquis) 5 mg PO BID 12/11/24 12/11/24 12/11/24 atorvastatin 80 mg tablet 40 mg PO QAM 12/11/24 12/11/24 12/11/24 folic acid 1 mg tablet 1 mg PO DAILY 12/11/24 12/11/24 12/11/24 Active Medications Generic Name Dose Route Start Last Admin Trade Name Freq PRN Reason Stop Dose Admin Atorvastatin Calcium 40 mg 12/12/24 09:00 12/13/24 07:34 Atorvastatin 40 Mg Tab PO 01/11/25 08:59 40 mg QAM MARY Administration Famotidine 20 mg 12/11/24 21:00 12/13/24 07:39 Famotidine 20 Mg Tab PO 01/10/25 20:59 20 mg BID MARY Administration Folic Acid 1 mg 12/12/24 09:00 12/13/24 07:34 Folic Acid 1 Mg Tab PO 01/11/25 08:59 1 mg DAILY MARY Administration Ampicillin Sodium/Sulbactam Sodium 3,000 mg in 100 mls @ 200 mls/hr 12/11/24 14:00 12/13/24 07:41 Unasyn IV 12/21/24 13:59 0 mls/hr Q6H MARY Infusion Ketorolac Tromethamine 15 mg 12/11/24 12:13 12/12/24 19:54 Ketorolac Tromethamine 15 Mg/Ml Vial IV 12/16/24 12:12 15 mg Q6H PRN Administration Pain Morphine Sulfate 3 mg 12/11/24 12:13 12/12/24 11:55 Morphine Sulfate 4 Mg/Ml 1 Ml Carp\Vial IV 12/25/24 12:12 3 mg Q4H PRN Administration Breakthrough Pain Oxycodone/Acetaminophen 1 tab 12/11/24 12:13 12/11/24 20:20 Oxycodone/Acetaminophen 5mg/325mg Tab PO 12/25/24 12:12 1 tab Q4H PRN Administration Moderate Pain (Scale 4, 5, 6) Oxycodone/Acetaminophen 2 tab 12/11/24 12:13 12/13/24 07:39 Oxycodone/Acetaminophen 5mg/325mg Tab PO 12/25/24 12:12 2 tab Q4H PRN Administration Severe Pain (Scale 7, 8, 9,10) NPO Date Last Intake of Fluids: 12/13/24 Time Last Intake of Fluids: 00:00 Date Last Intake of Solids: 12/12/24 Time Last Intake of Solids: 19:00 Past Medical History Medical History History of cardiac murmur as a child Diabetes mellitus, type 2 Degenerative joint disease knees GERD (gastroesophageal reflux disease) Hyperlipidemia Past Surgical History Surgical History Hx of colonoscopy Hx of sinus surgery Hx of tonsillectomy Social History Smoking Status: Former smoker Do You Dip or Chew Tobacco: Yes Hx Alcohol Use: Yes Alcohol type: beer alcohol intake frequency: holidays/special occasions only Hx Substance Use: No substance use type: does not use Physical Exam Vital Signs Last Vital Signs Temp 36.9 C 12/13/24 07:37 Pulse 72 12/13/24 07:37 Resp 16 12/13/24 07:37 BP 142/86 H 12/13/24 07:37 Pulse Ox 93 12/13/24 07:37 O2 Del Method Room Air 12/13/24 07:37 O2 Flow Rate 2 12/11/24 13:00 Testing Laboratory Results 12/13/24 06:12 12/11/24 08:39 Aerobic Blood Culture - Preliminary Blood No growth in Aerobic bottle after 24 hours. Anaerobic Blood Culture - Preliminary No growth in Anaerobic bottle after 24 hours. 12/11/24 07:47 Aerobic Blood Culture - Preliminary Blood No growth in Aerobic bottle after 24 hours. Anaerobic Blood Culture - Preliminary No growth in Anaerobic bottle after 24 hours. 12/13/24 12/12/24 07:43 20:32 POC Glucose 83 97
[2024-12-13 08:02] LABS: Calcium 8.3 mg/dl (8.6-10.3)
[2024-12-13 08:40] LABS: Estimated Average Glucose 131 mg/dl; Hemoglobin A1C 6.2 % (4.5-5.6)
--- NOTE | 2024-12-13 11:04 | Oral/Maxillofacial Progress Nt ---
Date of Service December 13, 2024 Assessment & Plan Admission and Anticipated Discharge Date Admission Date: December 11, 2024 Subjective OK for the OR this afternoon Still drainage left side, somewhat better trismus noted Still in a lot of pain. Plan I&D floor of the mouth left side and submandibular and masseter space infection. Extraction of grossly infected/fractured/decayed teeth # 12,13,14,15,18,19,20, 21,22 Consent signed NPO OK for the OR at 1 pm Results & Data Vital Signs (Past 12 Hours) Vital Signs Temp Pulse Pulse Resp BP Pulse Ox O2 Del Method 12/13/24 07:37 36.9 C 72 16 142/86 H 93 Room Air 12/13/24 07:11 36.9 C 102 H 18 143/88 H 92 Room Air PG Care Time/CCT Total # of Minutes Spent Total Time Spent with Patient: Total time spent is greater than 50% in coordination of care (as documented) at patient's floor/unit and/or counseling patient: Coding Level of Care Code None
--- NOTE | 2024-12-13 11:35 | Billing Data ---
Date of Service December 12, 2024 Coding Level of Care Code 38619 SUB INP/OBS CARE MIN
[2024-12-13] MEDS ORDERED: Nursing to Pharmacy Communication SCH (12:30)
[2024-12-13] MEDS ORDERED: MIDAZOLAM HCL 1 MG/ML 2ML VIAL ONE (12:37)
[2024-12-13] MEDS ORDERED: OXYMETAZOLINE 0.05% 30 ML BTL ONE (12:40)
[2024-12-13] MEDS ORDERED: fentaNYL citrate PF 100 MCG/2 ML VIAL ONE ×2 (12:42→13:54)
[2024-12-13] MEDS ORDERED: LIDOCAINE 2% 2 ML VIAL/AMP(20MG/ML) INFIL ONE ×2 (12:43→14:15)
[2024-12-13] MEDS ORDERED: ROCURONIUM BROMIDE 10 MG/ML 5 ML VIAL IV ONE ×3 (12:45→14:43)
[2024-12-13] MEDS: LACTATED RINGER'S 1,000 ML IV SCH (12:45)
[2024-12-13] MEDS ORDERED: HYDROmorphone INJ 1 MG/ML SYRINGE IV PRN (12:55)
[2024-12-13] MEDS ORDERED: ATROPINE SULFATE 0.1 MG/ML 10ML SYR IV PRN (12:55)
[2024-12-13] MEDS ORDERED: HYDROmorphone INJ 2 MG/ML SYR/VIAL IV PRN (12:55)
[2024-12-13] MEDS ORDERED: fentaNYL citrate PF 100 MCG/2 ML VIAL IV PRN (12:55)
[2024-12-13] MEDS ORDERED: ePHEDrine sulfate 50 MG/ML AMP IV PRN (12:55)
[2024-12-13] MEDS ORDERED: ONDANSETRON INJ 2 MG/ML 2 ML VIAL IV PRN (12:55)
--- NOTE | 2024-12-13 12:59 | Anesthesiology Consultation ---
Date of Service December 13, 2024 Assessment & Plan Chart Review Chart Review: Acceptable Risk for Surgery Consults Requested none ASA ASA3 Proposed Anesthesia Anesthesia Type: General Additional Comments: [place] scope History Surgery Operation Date: 12/13/24 08:20 Proposed Procedures p Left Side Incision and Drainage, - Elroy Bullock DMD s Left Lower Multiple Extractions - Elroy Bullock DMD Height/Weight Height: 5 ft 8 in Weight: 118.8 kg Allergies Allergy/AdvReac Type Severity Reaction Status Date / Time aspirin Allergy Anaphylaxis Verified 12/13/24 12:32 bee venom protein (honey bee) Allergy Anaphylaxis Verified 12/13/24 12:32 shellfish derived Allergy Hives Verified 12/13/24 12:32 Sulfa (Sulfonamide Allergy Hives Verified 12/13/24 12:32 Antibiotics) seafood Allergy Hives Uncoded 12/13/24 12:32 Medications Home Medications Medication Instructions Recorded Confirmed Last Taken acetaminophen 500 mg tablet 500 mg PO Q6H PRN Pain 08/13/23 12/11/24 08/18/23 cholecalciferol (vitamin D3) 25 25 mcg PO DAILY ##0 08/13/23 12/11/24 12/11/24 mcg (1,000 unit) tablet (Vitamin D3) empagliflozin 25 mg tablet 25 mg PO QAM 08/13/23 12/11/24 12/11/24 (Jardiance) famotidine 20 mg tablet 20 mg PO BID 08/13/23 12/11/24 12/11/24 clindamycin HCl 300 mg capsule 300 mg PO TID 10 days #30 caps 12/09/24 12/11/24 12/11/24 (Cleocin HCl) oxycodone 5 mg tablet 5 mg PO Q4H PRN pain #15 tabs 12/09/24 12/11/24 Unknown apixaban 5 mg tablet (Eliquis) 5 mg PO BID 12/11/24 12/11/24 12/11/24 atorvastatin 80 mg tablet 40 mg PO QAM 12/11/24 12/11/24 12/11/24 folic acid 1 mg tablet 1 mg PO DAILY 12/11/24 12/11/24 12/11/24 Active Medications Generic Name Dose Route Start Last Admin Trade Name Freq PRN Reason Stop Dose Admin Atorvastatin Calcium 40 mg 12/12/24 09:00 12/13/24 07:34 Atorvastatin 40 Mg Tab PO 01/11/25 08:59 40 mg QAM MARY Administration Famotidine 20 mg 12/11/24 21:00 12/13/24 07:39 Famotidine 20 Mg Tab PO 01/10/25 20:59 20 mg BID MARY Administration Folic Acid 1 mg 12/12/24 09:00 12/13/24 07:34 Folic Acid 1 Mg Tab PO 01/11/25 08:59 1 mg DAILY MARY Administration Ampicillin Sodium/Sulbactam Sodium 3,000 mg in 100 mls @ 200 mls/hr 12/11/24 14:00 12/13/24 08:28 Unasyn IV 12/21/24 13:59 Infused Q6H MARY Infusion Lactated Ringer's 1,000 mls @ 15 mls/hr 12/13/24 06:00 12/13/24 12:45 Lr IV 12/14/24 05:59 15 mls/hr .Q24H MARY Administration Ketorolac Tromethamine 15 mg 12/11/24 12:13 12/12/24 19:54 Ketorolac Tromethamine 15 Mg/Ml Vial IV 12/16/24 12:12 15 mg Q6H PRN Administration Pain Morphine Sulfate 3 mg 12/11/24 12:13 12/13/24 10:03 Morphine Sulfate 4 Mg/Ml 1 Ml Carp\Vial IV 12/25/24 12:12 3 mg Q4H PRN Administration Breakthrough Pain Oxycodone/Acetaminophen 1 tab 12/11/24 12:13 12/11/24 20:20 Oxycodone/Acetaminophen 5mg/325mg Tab PO 12/25/24 12:12 1 tab Q4H PRN Administration Moderate Pain (Scale 4, 5, 6) Oxycodone/Acetaminophen 2 tab 12/11/24 12:13 12/13/24 07:39 Oxycodone/Acetaminophen 5mg/325mg Tab PO 12/25/24 12:12 2 tab Q4H PRN Administration Severe Pain (Scale 7, 8, 9,10) NPO Date Last Intake of Fluids: 12/12/24 Time Last Intake of Fluids: 21:00 Last Intake of Fluids Comment: sip water this am with meds Date Last Intake of Solids: 12/12/24 Time Last Intake of Solids: 21:00 Last Intake of Solids Comment: Greater then 8 hrs Past Medical History Medical History History of cardiac murmur as a child Diabetes mellitus, type 2 Degenerative joint disease knees GERD (gastroesophageal reflux disease) Hyperlipidemia Exercise / Class Metabolic Activity III < 4 Walking/Shop/Light housework Past Surgical History Surgical History Hx of colonoscopy Hx of sinus surgery Hx of tonsillectomy Past Anesthesia History No Hx of Anesthesia Complications History of PONV No Hx of PONV and No Hx of Motion Sickness Social History Smoking Status: Former smoker Do You Dip or Chew Tobacco: Yes Hx Alcohol Use: Yes Alcohol type: beer alcohol intake frequency: holidays/special occasions only Hx Substance Use: No substance use type: does not use Physical Exam Vital Signs Last Vital Signs Temp 36.6 C 12/13/24 12:32 Pulse 89 12/13/24 12:32 Resp 20 12/13/24 12:32 BP 155/93 H 12/13/24 12:32 Pulse Ox 94 12/13/24 12:32 O2 Del Method Room Air 12/13/24 12:32 O2 Flow Rate 2 12/11/24 13:00 Constitutional no acute distress ENMT Mouth: + dental caries, + chipped teeth and + small oral opening Thyromental Distance: > or= 3.5 Finger Breadths Mallampati Class: III Extremely poor condition of teeth, all cracked/broken Neck normal visual inspection, + thick neck, + limited neck extension and + facial hair Left face swollen Respiratory normal respiratory effort Auscultation: lungs clear to auscultation bilaterally Cardiovascular Rate/Rhythm: regular rate and regular rhythm Neurologic moves all extremities Psychiatric Orientation: alert and oriented x 3 Testing Laboratory Results 12/13/24 06:12 12/13/24 06:12 Hemoglobin A1c 6.2 % (4.5-5.6) H 12/13/24 06:12 12/11/24 08:39 Aerobic Blood Culture - Preliminary Blood No growth in Aerobic bottle after 48 hours. Anaerobic Blood Culture - Preliminary No growth in Anaerobic bottle after 48 hours. 12/11/24 07:47 Aerobic Blood Culture - Preliminary Blood No growth in Aerobic bottle after 48 hours. Anaerobic Blood Culture - Preliminary No growth in Anaerobic bottle after 48 hours. 12/13/24 12/13/24 12/13/24 12:23 11:48 07:43 POC Glucose 75 71 83
[2024-12-13] MEDS ORDERED: KETAMINE HCL 10MG/ML SYR ONE (13:55)
[2024-12-13] MEDS: CHLORHEXIDINE GLUCONATE 0.12% 480 ML MT ONE (14:03)
[2024-12-13] MEDS ORDERED: ONDANSETRON INJ 2 MG/ML 2 ML VIAL ONE (14:05)
[2024-12-13] MEDS ORDERED: DEXAMETHASONE SOD INJ 4 MG/ML VIAL ONE (14:05)
[2024-12-13] MEDS ORDERED: LABETALOL HCL IV 5 MG/ML 20ML IV ONE (14:10)
[2024-12-13] MEDS ORDERED: SUGAMMADEX SODIUM 200 MG/2 ML VIAL IV ONE (14:15)
[2024-12-13] MEDS: SURGICEL ABSORB HEMOSTAT 2IN X 14IN TOP ONE (14:28)
[2024-12-13] MEDS: BUPIVACAINE/EPINEPHRINE 0.5% 1:200,000 1.8 ML CARP ONE (15:00)
--- NOTE | 2024-12-13 15:18 | Post Operative Brief Note ---
PG Immediate Post Op with CF Date of Surgery December 13, 2024 Pre & Post Diagnosis Operation Date: 12/13/24 08:20 Pre-Op Diagnosis: Facial cellulitis Dental infection Carious teeth Acute periodontal abscess Post-Op Diagnosis: Facial cellulitis Dental infection Carious teeth Acute periodontal abscess I identified the patient and participated in the time-out.: Yes Procedure Operation Date: 12/13/24 08:20 Actual Procedures p Left Side Incision and Drainage,(Left) - Elroy Bullock DMD s Left upper and lower Multiple Extractions(Left) - Elroy Bullock DMD Surgeon Elroy Bullock DMD Fly Maker none Estimated Blood Loss 10 Findings Consistent with Post-Op Diagnosis gross floor of mouth infection left side with breakdown of the lingual tissues Specimens Specimen Description: No specimen as per surgeon Complications infected soft tissue lower posterior area of the lingual aspect with exposed lingual bone Disposition Accompanied Patient To Recovery: Yes Disposition: Recovery Room
--- NOTE | 2024-12-13 17:19 | Anesthesiology Progress Note ---
Date of Service December 13, 2024 Anesthesia Post Procedure Vital Signs Vital Signs: Temp Pulse Pulse Resp BP BP Pulse Ox 12/13/24 16:45 36.8 C 98 H 16 151/78 H 92 12/13/24 16:00 94 H 14 137/90 92 12/13/24 15:50 36.5 C 91 H 16 158/97 H 92 12/13/24 15:40 94 H 13 174/94 H 93 12/13/24 15:30 99 H 18 162/97 H 96 12/13/24 15:20 100 H 15 184/104 H 94 12/13/24 15:14 36.0 C L 106 H 16 203/107 H 94 12/13/24 12:32 36.6 C 89 20 155/93 H 94 12/13/24 11:47 36.8 C 82 16 125/82 95 12/13/24 07:37 36.9 C 72 16 142/86 H 93 12/13/24 07:11 36.9 C 102 H 18 143/88 H 92 12/12/24 20:15 36.7 C 97 H 18 148/89 H 93 O2 Del Method O2 Flow Rate 12/13/24 16:45 Nasal Cannula 2 12/13/24 16:00 Nasal Cannula 2 12/13/24 15:50 Oxymask 4 12/13/24 15:40 Oxymask 4 12/13/24 15:30 Oxymask 8 12/13/24 15:20 Oxymask 8 12/13/24 15:14 Oxymask 8 12/13/24 12:32 Room Air 12/13/24 11:47 Room Air 12/13/24 07:37 Room Air 12/13/24 07:11 Room Air 12/12/24 20:15 Room Air Pain Intensity Left Jaw: Pain Intensity: 10 Transfer of Care Handoff Completed per policy Notes Mental Status: alert / awake / arousable Patient Amnestic to Procedure: Yes Nausea / Vomiting: adequately controlled Pain: adequately controlled Airway Patency, RR, SpO2: stable & adequate BP & HR: stable & adequate Hydration State: stable & adequate Anesthetic Complications: no major complications apparent
[2024-12-13] MEDS: ACETAMINOPHEN 325 MG TAB PO PRN (22:44)
--- NOTE | 2024-12-13 23:09 | Hospitalist Progress Note ---
Date of Service December 13, 2024 Assessment & Plan (1) Facial cellulitis: Plan: Acute, severe with abscess - Admit to med/surg - VS per unit protocol - Continue empiric Unasyn but increase to 3g IV q6 given severity of infection - Blood cultures obtained and pending - Consult formally placed to FS, Dr. Bullock, appreciate assistance - S/P I and D. - Pain control with Percocet 1-2tabs according to pain scale, Ketorolac, and Morphine for breakthrough pain - APAP PRN fever or mild pain - Diabetic diet, soft and easy to chew texture (2) Dental infection: Plan: Acute, severe with multiple dental caries and abscesses - IV Unasyn as noted above, pain control - Dr. Bullock on consult, will need multiple teeth extracted to control infection - Oral mouth rinse as per Dr. Bullock (3) Anticoagulant long-term use: (4) Carious teeth: (5) Acute periodontal abscess: (6) Diabetes mellitus, type 2: Plan: Chronic - Uncertain level of control, no hemoglobin a1c on record, [facility] - Reports his BSG runs in the 100-200s - Continue Jardiance, check BSG ac and hs - Add SSI if BSG >160 (7) History of DVT (deep vein thrombosis): Plan: History of DVT unprovoked 3 months ago - Hold Eliquis for planned procedure, explained risk which can include repeat DVT/PE, pt verbalized understanding - Encourage ambulation in room to avoid prolonged sitting/lying which will further increase risk - Will require [facility] with [facility] and potentially hypercoagulable work up Plan 59 year old male presenting with dental abscess/facial cellulitis with plan for OR 3/10 after 48 hours off Eliquis. #Dental Infection/Facial Cellulitis - Acute, severe with abscess - Blood cultures obtained and pending - Consult formally placed to OMFS, Dr. Bullock, appreciate assistance-> plan for OR 3/10 after 48 hours off Eliquis - Pain control with Percocet 1-2tabs according to pain scale, Ketorolac, and Morphine for breakthrough pain - APAP PRN fever or mild pain - Diabetic diet, soft and easy to chew texture - Continue Unasyn -will continue above plan #DM2 - Uncertain level of control, no hemoglobin a1c on record, [facility]-> hemoglobin a1c qAM - Reports his BSG runs in the 100-200s - Continue Jardiance, check BSG ac and hs - Add SSI if BSG >160 #History of DVT - unprovoked 3 months ago - Hold Eliquis for planned procedure - Encourage ambulation in room to avoid prolonged sitting/lying which will further increase risk - Will require [facility] with [facility] and potentially hypercoagulable work up - Lovenox: holding loveox now. Chronic/Stable: HLD - continue atorvastatin GERD - continue famotidine DVT ppx will be with Lovenox, which dose can be held on Friday evening (day prior to procedure), discussed with Dr. Bullock who was in agreement. Admission and Anticipated Discharge Date Admission Date: December 11, 2024 Subjective 59 yo male reports no new symptoms. Physical Exam Physical Exam: Constitutional: well-appearing, no acute distress HEENT: NCAT, no conjunctival injection CV: regular rhythm, no murmur appreciated, extremities well-perfused Resp: CTABL, no wheezes/rales/rhonchi appreciated, no increased work of breathing MSK: no gross deformities appreciated Skin: warm, dry, no rash appreciated Neuro: alert, oriented, no focal neurologic deficit appreciated Results & Data Results & Data Vital Signs (Past 12 Hours) Vital Signs Temp Pulse Pulse Pulse Resp BP BP 12/13/24 19:45 12/13/24 19:20 37.1 C 102 H 20 173/96 H 12/13/24 18:23 37.4 C 106 H 18 183/108 H 12/13/24 17:31 37.0 C 107 H 18 171/95 H 12/13/24 16:45 36.8 C 98 H 16 151/78 H 12/13/24 16:20 36.7 C 106 H 18 148/95 H 12/13/24 16:00 94 H 14 137/90 12/13/24 15:50 36.5 C 91 H 16 158/97 H 12/13/24 15:40 94 H 13 174/94 H 12/13/24 15:30 99 H 18 162/97 H 12/13/24 15:20 100 H 15 184/104 H 12/13/24 15:14 36.0 C L 106 H 16 203/107 H 12/13/24 12:32 36.6 C 89 20 155/93 H 12/13/24 11:47 36.8 C 82 16 125/82 Pulse Ox O2 Del Method O2 Flow Rate 12/13/24 19:45 Nasal Cannula 2 12/13/24 19:20 96 Room Air 12/13/24 18:23 91 Nasal Cannula 2 12/13/24 17:31 92 Nasal Cannula 2 12/13/24 16:45 92 Nasal Cannula 2 12/13/24 16:20 92 Nasal Cannula 2 12/13/24 16:00 92 Nasal Cannula 2 12/13/24 15:50 92 Oxymask 4 12/13/24 15:40 93 Oxymask 4 12/13/24 15:30 96 Oxymask 8 12/13/24 15:20 94 Oxymask 8 12/13/24 15:14 94 Oxymask 8 12/13/24 12:32 94 Room Air 12/13/24 11:47 95 Room Air PG Care Time/CCT Total # of Minutes Spent Total Time Spent with Patient: Total time spent is greater than 50% in coordination of care (as documented) at patient's floor/unit and/or counseling patient: Coding Level of Care Code 33141 SUB INP/OBS CARE 3/50MIN Diagnoses Facial cellulitis L03.211 Dental infection K04.7 Anticoagulant long-term use Z79.01 Carious teeth K02.9 Acute periodontal abscess K05.219 Diabetes mellitus, type 2 E11.9 History of DVT (deep vein thrombosis) Z86.718
[2024-12-13 23:25] VITALS: RESP 18
[2024-12-14 07:29] LABS: Hematocrit (blood only) 40.2 % (42.0-52.0); Hemoglobin 13.2 g/dl (14.0-18.0); Mean Corpuscular Hemoglobin 30.1 pg (25.0-34.0); Mean Corpuscular Hgb Conc 32.8 g/dL (32.0-36.0); Mean Corpuscular Volume 91.8 fL (80.0-100.0); Mean Platelet Volume 8.5 fL (9.4-12.4); Platelet Count 346 K/uL (130-400); RDW Coefficient of Variation 12.9 % (11.5-14.5); RDW Standard Deviation 43.8 fL (36.4-46.3); Red Blood Count 4.38 M/uL (4.70-6.10); White Blood Count 7.89 K/ul (4.8-10.8)
[2024-12-14 08:01] LABS: BUN Creatinine Ratio 14.1 (10-20); Calcium 8.5 mg/dl (8.6-10.3); Creatinine Clr Calc Pharmacy 143.8 ml/min; Potassium 4.1 mmol/L (3.5-5.1)
[2024-12-14 12:15] VITALS: BP 171/93; PULSE 96; TEMP 97.9; O2SAT 92
--- NOTE | 2024-12-14 13:46 | Oral/Maxillofacial Progress Nt ---
Date of Service December 14, 2024 Assessment & Plan Admission and Anticipated Discharge Date Admission Date: December 11, 2024 Subjective Post Op infection evaluation 24 hours The infected area is resolving very well Swelling is almost completely gone and the tissue is granulation well. The lingual of the lower left side where the infection drained has exposed bone No further drainage is noted. He still has many other infected teeth that will need attention in the future. The large area of exposed lingual bone will need to granulate --I will need to follow Infection has responded very well to the antibiotics, extractions and the I and D. I requested that the patient continue with massage, heat and wound care. OK for D/C OK tr restart the Eliquis December 15 At this time the area is well healed and responded well to treatment, no further treatment needed. RTC 9:30 December 28 Results & Data Vital Signs (Past 12 Hours) Vital Signs Temp Pulse Resp BP Pulse Ox O2 Del Method 12/14/24 11:36 36.6 C 96 H 18 171/93 H 92 Room Air 12/14/24 09:52 Room Air 12/14/24 07:19 36.3 C L 82 18 152/84 H 96 Room Air PG Care Time/CCT Total # of Minutes Spent Total Time Spent with Patient: Total time spent is greater than 50% in coordination of care (as documented) at patient's floor/unit and/or counseling patient: Coding Level of Care Code 84967 SUB INP/OBS CARE 10/30MIN
[2024-12-14] MEDS ORDERED: CHLORHEXIDINE GLUCONATE 0.12% 480 ML MT SCH (14:00)
--- NOTE | 2024-12-14 15:08 | Discharge Summary ---
Discharge Summary Date of Service December 14, 2024 Principal Dx & Hospital Course #1 = Principal Diagnosis (1) Facial cellulitis: Acute, severe with abscess - Admit to med/surg - VS per unit protocol - Continue empiric Unasyn but increase to 3g IV q6 given severity of infection - Blood cultures obtained and pending - Consult formally placed to OMFS, Dr. Bullock, appreciate assistance - S/P I and D. - Discharge instructions noted below. (2) Dental infection: Acute, severe with multiple dental caries and abscesses - IV Unasyn as noted above, pain control - Dr. Bullock on consult, will need multiple teeth extracted to control infection - Oral mouth rinse as per Dr. Bullock (3) Anticoagulant long-term use: (4) Carious teeth: (5) Acute periodontal abscess: (6) Diabetes mellitus, type 2: Chronic - Uncertain level of control, no hemoglobin a1c on record, [facility] - Reports his BSG runs in the 100-200s - Continue Jardiance, check BSG ac and hs - Add SSI if BSG >160 (7) History of DVT (deep vein thrombosis): History of DVT unprovoked 3 months ago - Hold Eliquis for planned procedure, explained risk which can include repeat DVT/PE, pt verbalized understanding - Encourage ambulation in room to avoid prolonged sitting/lying which will further increase risk - Will require [facility] and potentially hypercoagulable work up Admission HPI Per Admitting Provider Moreno is a 59 yo M with a pmhx of DMT2, HLD and h/o unprovoked DVT 3 months ago who presents to the ER today c/o left sided facial swelling and pain. He reports symptoms started about 1 week ago with an achy tooth. He was using OTC remedies without relief. Symptoms worsened and he presented to the ER on where he was diagnosed with a dental infection and discharged home with a course of clindamycin. Pt reports that since discharge, he has had progressively worsening swelling and pain. He is able to swallow and denies any airway impairment or dyspnea. Denies fever or chills. He underwent CT soft tissue neck in the ER with findings of multiple dental cavities and abscesses, but a notable 2cm abscess medial to the left mandible angle and ramus. He was medicated with a dose of IV Unasyn and Morphine for pain. OMFS consult placed, he was seen in the ER by Dr. Bullock who plans to perform I&D but will require admission, IV abx, and holding his Eliquis until he can proceed to the OR. He has subsequently been referred to the hospital medicine team for further care. Discharge Exam Constitutional: well-appearing, no acute distress HEENT: NCAT, no conjunctival injection CV: regular rhythm, no murmur appreciated, extremities well-perfused Resp: CTABL, no wheezes/rales/rhonchi appreciated, no increased work of breathing MSK: no gross deformities appreciated Skin: warm, dry, no rash appreciated Neuro: alert, oriented, no focal neurologic deficit appreciated Discharge Plan Discharge Items Patient Disposition: Home - Self-Care Reason For Visit: FACIAL CELLULITIS, FAILED OP ABX Discharge Diagnosis: s/p I&D with extraction of infected teeth Condition on Discharge: Good Activity: Resume your previous activity Lifting: Gradually increase as tolerated Bathing: No limitations Exercise/Sports: Gradually increase as tolerated Driving/Machine Use: Resume 1 day after discharge Weightbearing: Full weightbearing Non-emergency contact: Surgeon Call non-emergency contact if: you have any medication questions, your symptoms worsen, your pain is not controlled, your temperature is above 101.5, your wound has increased redness, your wound has increased drainage and your wound pain has increased Follow-up/Referrals: Elroy Bullock, DMD [Physician] - [facility],Hospital [Primary Care Provider] - Diet: Carb Consistent or DM2, Full liquid and Clear liquid Diet Texture: Easy to Chew Diet Comment: eat on the right side Addtl Attending Provider Instructions: ADDITIONAL ACTIVITY RECOMMENDATIONS: * [place] teeth after every meal. It is very important to keep your mouth clean to prevent infection. * Starting tonight rinse with the Peridex as directed then 2 x a day * it is very important to keep well hydrated, this prevents fever and possible dry socket pain SPECIAL CARE INSTRUCTIONS: *It is not uncommon that between day 2-4 that your swelling will be at its worst this is very normal, do not be alarmed. * Keep ice on the side of your face for the next 24 to 36 hours. This will help keep the swelling down. * After 36 hours, apply heat (hot water bottle or heating pad) for the next two days, as often as possible. * Tomorrow start rinsing your mouth with 1/2 teaspoon salt in 8 ounces warm water. This rinse should be used every 4-6 hours. * You may experience slight nausea. To prevent this, never take your medication on an empty stomach. If nauseated, take small sips of adan amparo until you feel better; then you may start on applesauce and toast. * A certain amount of bleeding is to be expected. It is often possible to control mild oozing by placing folded gauze over the area and biting down for 30 minutes. If you are unable to control excessive bleeding, call Dr Bullock at [phone] * You may experience some discomfort for a few days. If pain or swelling increases, Call Dr Bullock * Return to the office for a follow up check up on: December 28 9:30 am * office address--[address] [place], [place] [address]shona Blair. phone # [phone] Pending Studies at Discharge: No Stand-Alone Forms: My [employer], Smoking Cessation Medications and DC Order Prescriptions: Continued hydrocodone-acetaminophen 5-325 mg tablet 1 tab PO Q4H PRN (Reason: pain) Qty: 14 0RF acetaminophen 500 mg Tablet 500 mg PO Q6H PRN (Reason: Pain) famotidine 20 mg Tablet 20 mg PO BID cholecalciferol (vitamin D3) [Vitamin D3] 25 mcg (1,000 unit) Tablet 25 mcg PO DAILY Qty: 0 Jardiance 25 mg Tablet 25 mg PO QAM oxycodone 5 mg tablet 5 mg PO Q4H PRN (Reason: pain) Qty: 15 0RF atorvastatin 80 mg Tablet 40 mg PO QAM folic acid 1 mg Tablet 1 mg PO DAILY Eliquis 5 mg Tablet 5 mg PO BID Discharge Orders: Discharge Order (Routine); Ordered 12/14/24 Ordered By: Elroy Nuñez/Other Patient Handouts: Hydrocodone/Acetaminophen Oral Tablet, Chlorhexidine Mouthwash, Managing Type 2 Diabetes Admission Data Admit Date/Time: 12/11/24 09:51 Attending Provider: Chester Granado Admit Provider: Chester Granado Primary Care Provider: [facility] Other Providers: Elroy Bullock Other Interventions: Discharge Summary Assessment (RN) Last Done: 12/14/24 14:01 Hospital Stay Data Consultations 12/11/24 09:43 ED Decision to Admit Stat 12/11/24 09:51 Consult Oromaxillofacial Surgery Stat Procedures Performed Operation Date: 12/13/24 08:20 Actual Procedures p Left Side Incision and Drainage,(Left) - Elroy Bullock DMD s Left Lower Multiple Extractions(Left) - Elroy Bullock DMD Diagnostic Imagining Performed 12/11/24 07:31 CT soft tissue neck w con Stat Pending Results Patient Have Any Pending Studies at Discharge: No Discharge Instructions Given to Patient (Per Discharging Provider) ADDITIONAL ACTIVITY RECOMMENDATIONS: * [place] teeth after every meal. It is very important to keep your mouth clean to prevent infection. * Starting tonight rinse with the Peridex as directed then 2 x a day * it is very important to keep well hydrated, this prevents fever and possible dry socket pain SPECIAL CARE INSTRUCTIONS: *It is not uncommon that between day 2-4 that your swelling will be at its worst this is very normal, do not be alarmed. * Keep ice on the side of your face for the next 24 to 36 hours. This will help keep the swelling down. * After 36 hours, apply heat (hot water bottle or heating pad) for the next two days, as often as possible. * Tomorrow start rinsing your mouth with 1/2 teaspoon salt in 8 ounces warm water. This rinse should be used every 4-6 hours. * You may experience slight nausea. To prevent this, never take your medication on an empty stomach. If nauseated, take small sips of adan amparo until you feel better; then you may start on applesauce and toast. * A certain amount of bleeding is to be expected. It is often possible to control mild oozing by placing folded gauze over the area and biting down for 30 minutes. If you are unable to control excessive bleeding, call Dr Bullock at [phone] * You may experience some discomfort for a few days. If pain or swelling increases, Call Dr Bullock * Return to the office for a follow up check up on: December 28 9:30 am * office address--[address] phone # [phone] Total Time Total Time Spent Total Time Spent (In Minutes): 32 Coding Level of Care Code 06705 INP/OBS DISCH >30 MIN Diagnoses Facial cellulitis L03.211 Dental infection K04.7 Anticoagulant long-term use Z79.01 Carious teeth K02.9 Acute periodontal abscess K05.219 Diabetes mellitus, type 2 E11.9 History of DVT (deep vein thrombosis) Z86.718
--- NOTE | 2024-12-25 12:22 | Operative Report ---
PG Post Operative Report Pre & Post Diagnosis Operation Date: 12/13/24 08:20 Pre-Op Diagnosis: Facial cellulitis Dental infection Carious teeth Acute periodontal abscess Post-Op Diagnosis: Facial cellulitis Dental infection Carious teeth Acute periodontal abscess I identified the patient and participated in the time-out.: Yes Procedure Operation Date: 12/13/24 08:20 Actual Procedures p Left Side Incision and Drainage,(Left) - Elroy Bullock DMD s Left Lower Multiple Extractions(Left) - Elroy Bullock DMD Surgeon Elroy Bullock DMD Crisis Worker none Estimated Blood Loss 10 Findings Consistent with Post-Op Diagnosis Specimens none Drains none Complications none Disposition Accompanied Patient To Recovery: Yes Disposition: Recovery Room Indications acute infection Description of Procedure Still drainage left side, somewhat better trismus noted Still in a lot of pain. Plan I&D floor of the mouth left side and submandibular and masseter space infection. Extraction of grossly infected/fractured/decayed teeth # 12,13,14,15,18,19,20,21,22 Consent signed ICD 10 K12.2 ICD 10 K04.6 Z79.01 CPT 41795 lower left CPT 92656 upper left D7210 x 9 for teeth 12,13,14,15,18,19,20,21,22 Actual Procedures p Incision and Drainage left Submandibular Abscess and left infraorbital Abscess; Removal of Teeth # 12,13,14,15,18,19,20,21,22 (Not Applicable) - Elroy Bullock DMD Once cleared for surgery general anesthesia was achieved, the eyes were protected by the anesthesia dept criteria. A time out was take for patient ID, antibiotics, equipment and position verification once all agreed the procedure began. Local anesthesia using Marcaine with a vasoconstrictor ( 1.8 ml per site) given into left inferior alveolar nerve upper left posterior area A throat pack was placed after the oral cavity was irrigated with saline. Once a surgical level of anesthesia was obtained and the local anesthesia was given time for the blocks the surgery was started. I turned my attention to the infection which was located in the floor of the mouth and submental area. The tongue was elevated and there was also swelling associated with the following teeth # 12,13,14,15,18,19,20,21,22 ( see CT scan report) Incision and Drainage lower submandibular, floor of the mouth and masseter space (CPT 26404) Using a 15 blade an incision was made medial to the alveolar ridge and lateral to the duct of the left submandibular gland. Once the incision was made a lot of pus extruded from the site. A curved hemostat was carefully placed into the infected space along the medial side of the lower jaw and into the submandibular, floor of he mouth and masseter spaces. Some further drainage was now allowed to escape. I palpated the chin and submental area and no further drainage was expressed. The area was irrigated with at least 100 ml of NS solution. I now turned my attention to remove the lower teeth Lower #18,19,20,21,22 (D7210 x 5) The full thick Muco-periosteal flap was made on the facial aspect from # the retromolar area to site 24. The flap was reflected to expose the the subperiosteal space the bone adjacent to the teeth. The rongeur was used to remove bone, the infected teeth were removed with a 301 elevator and dental forceps , the mental nerve was intact, there was a large amount of granulation tissue on the apex and some more pus that was expressed. Surgicel was placed and the area was closed with a 2-0 Chromic. Incision and Drainage upper left vestibular and infraorbital space (CPT 50258) Using a 15 blade an incision was made medial to the alveolar ridge in the left posterior mucobuccal fold. Once the incision was made a lot of pus extruded from the site. A curved hemostat was carefully placed into the infected space along the lateral l side of the upper jaw and into the mucobuccal and infraorbital spaces. Some further drainage was now allowed to escape. I palpated the cheek area and no further drainage was expressed. The area was irrigated with at least 100 ml of NS solution. I now turned my attention to remove the upper teeth which were grossly infected and decayed Upper # 12,13,14,15 (D7210 x 4) The full thick Muco-periosteal flap was made on the facial aspect from # 11-15 The flap was reflected to expose the the subperiosteal space the bone adjacent to the teeth. The rongeur was used to remove bone, the infected teeth were removed with a 301 elevator and dental forceps ,there was a large amount of granulation tissue on t he apex of many teeth and some more pus that was expressed. Surgicel was placed and the area was closed with a 2-0 Chromic. I inspected the sites to insure all bleeding was controlled. I removed the throat pack and suctioned the throat. Bilateral gauze pressure dressings were placed. All instrument and sponge count was correct. The patient was allowed to awake from the anesthesia. Once full awake the anesthesia tube was removed and the patient was taken to the recovery room with all vital sign stable. The patient tolerated the surgery very well. I will follow the patient in my office, Rx and instructions will be given upon discharge. Moreno will need the rest of his teeth removed to prevent further infection He will [facility] He is not a candidate for office anesthesia and should be done in a hospital OR I attest to the content of the Intraoperative Record and any orders documented therein. Any exceptions are noted below.
== END 2024-12-14 15:42 | disposition home or self-care (01) | DRG 137 ==
LOC: ED 07:13 → EDINP 09:51 → 3N 13:49